=== PATIENT | male | born 1960 | race Caucasian/White ===

== ENCOUNTER 2020-12-24 10:48 | Inpatient (IN) | payer OTHER ==
[~2020-12-24] VITALS: Ht 175.3 cm; Wt 86.2 kg
[2020-12-24 14:02] LABS: HEMATOCRIT 28.5 % (42.0-52.0); HEMOGLOBIN 9.4 gm/dL (14.0-18.0); MCH 34.1 pg (26.0-34.0); MCHC 32.8 g/dL (28.0-37.0); MCV 103.8 fL (80.0-100.0); RBC 2.75 mil/uL (4.50-6.00); RDW 18.8 % (10.5-14.5); WBC 9.1 thou/uL (4.0-11.0)
[2020-12-24 14:14] LABS: INR 2.9; PROTIME 30.3 Seconds (9.3-11.4)
[2020-12-24 14:18] LABS: CALCIUM 8.8 mg/dL (8.5-10.1); CREATININE 1.2 mg/dL (0.7-1.3); POTASSIUM 3.8 mmol/L (3.5-5.1)
[2020-12-24 14:24] LABS: ALBUMIN 2.6 g/dL (3.4-5.0); MAGNESIUM 1.5 mg/dL (1.8-2.4); PHOSPHORUS 3.2 mg/dL (2.5-4.9); TOTAL BILIRUBIN 2.2 mg/dL (0.2-1.0); TOTAL PROTEIN 5.7 g/dL (6.4-8.2)
[2020-12-24 15:18] LABS: FOLIC ACID 12.9 ng/mL (8.6-58.9)
[2020-12-24] MEDS ORDERED: ELIQUIS5 MG PO (16:09)
[2020-12-24] MEDS ORDERED: NADOLOL 40 MG T40 M1 PO (16:13)
[2020-12-24] MEDS ORDERED: NEURONTIN100 MG PO (16:15)
[2020-12-24] MEDS ORDERED: PROTONIX40 M2 PO (16:16)
[2020-12-24 16:45] VITALS: BP 135/91
--- NOTE | 2020-12-24 17:04 | NUR ---
PATIENT ADMIT TO UNIT AT 1330 FROM [facility]. A/O X2 CONFUSED AND IMPULSIVE. IR INSERT IVC FLITER VIS RIGHT JUGULAR. NO EDEMA AND BLEEDING NOTED AT THIS TIME. PATIENT DENIES PAIN. ON 2L/NC. RESTLESS ON BED. ARLAM ON. WILL KEEP MONITOR.
[2020-12-24 20:09] VITALS: BP 131/84
[2020-12-24 23:55] VITALS: BP 130/82
--- NOTE | 2020-12-25 00:26 | NUR ---
SPOKE WITH DR. SONIDO CHEN, COVID PCR RESULT "NEGATIVE." REPORTED PT RESULTS OF CT SCAN AND CXR FROM 12/23 AT [facility] ER. NO "OPACITIES" PER REPORTS. ABLE TO DC ISOLATION FROM COVID PER DR. CHEN. NOTED HX OF COPD, DAILY MARIJUNNA, CIGARETTE AND ETOH CONSUMPTION. UPON INTIAL ASSESSMENT PT ON ROOM AIR WITH O2 SAT 95%. PT DROWSY, ORIENTED TO NAME, "[place]" BUT NOT TO TIME OR SITUATION. BRIEFLY SPOKE TO PT ABOUT DX OF PULMONARY EMBOLISM. PT REPORTS PARTIALLY RECALLS GOING TO IR FOR STERLING FILTER PLACEMENT. BRIEFLY INFORMED PT ON NECESSITY/PURPOSE FOR AND BEING COMPLIANT WITH TAKING APIXIBAN. PT REPORTED "I'M JUST TIRED." O2 SAT ON ROOM AT THAT TIME 95%. AT THIS TIME, PT STILL DROWSY BUT AWAKENS. SLIGHT CONGESTED COUGH. PT REPORTED "I ALWAYS GET A LITTLE SHORT OF BREATH UNTIL I COUGH THIS JUNK OUT." O2 SAT 83-84% ON ROOM AIR, 90% WITH O2 AT 4L PER NC. WILL MONITOR. LUNGS DIMINISHED THROUGHOUT.
[2020-12-25 04:45] VITALS: BP 130/98
[2020-12-25 06:06] LABS: IgG 912 mg/dL (603-1613)
--- NOTE | 2020-12-25 06:26 | NUR ---
PT MAKING SLOW PROGRESS TOWARDS GOALS. NOTED SLIGHT AMOUNT OF OOZING FROM RIGHT IJ PUNCTURE SITE. BY END OF SHIFT BANDAGE FULLY SATURATED. NEW DRESSING APPLIED. SIGHT CONTINUED TO SLOWLY OOZE DESPITE FIVE MINUTES OF PRESSURE. PT A&O X4 THIS AM. SEE CHARTING.
[2020-12-25 07:34] VITALS: BP 146/102
[2020-12-25 08:07] LABS: HAV IgM AB (ANTI-HAV IgM) Negative (Negative); HEPATITIS B SURFACE AG Negative (Negative); HEPATITIS C VIRUS AB >11.0 (0.0-0.9)
[2020-12-25 15:09] VITALS: BP 158/113
[2020-12-25 16:07] VITALS: BP 145/108
--- NOTE | 2020-12-25 16:12 | NUR ---
PT. ARRIVED AT THE FLOOR AROUND 1600; PT. ALERT; EDUCATED ABOUT FALL PRECAUTIONS; ST. UNDERSTANDING; NO C/O PAIN; ST. NOT REMEMBERING LAST BM; ST. NOT EATING MUCH; NOT FEELING CONSTIPATED; HR NOT MONITORING; SBP ABOVE 100; MONITORING; ASSESSMENT CHARGED; FOLLOWING POC; WILL PASS ON REPORT;
[2020-12-25 21:06] VITALS: BP 141/83
[2020-12-26 05:47] VITALS: BP 145/97
[2020-12-26 07:37] VITALS: BP 148/99
[2020-12-26 08:33] LABS: INR 1.3; PROTIME 13.1 Seconds (9.3-11.4)
[2020-12-26 11:01] LABS: HEMATOCRIT 24.6 % (42.0-52.0); MCH 34.7 pg (26.0-34.0); MCHC 32.4 g/dL (28.0-37.0); RBC 2.3 mil/uL (4.50-6.00); RDW 18.9 % (10.5-14.5)
[2020-12-26 11:14] LABS: ALBUMIN 2.4 g/dL (3.4-5.0); CALCIUM 8.1 mg/dL (8.5-10.1); CREATININE 0.9 mg/dL (0.7-1.3); POTASSIUM 3.2 mmol/L (3.5-5.1); TOTAL BILIRUBIN 1.1 mg/dL (0.2-1.0); TOTAL PROTEIN 5.2 g/dL (6.4-8.2)
[2020-12-26 11:23] VITALS: BP 133/78
[2020-12-26 15:15] VITALS: BP 130/76
--- NOTE | 2020-12-26 18:00 | NUR ---
RECEIVED PT'S CARE AROUND 0738; PT. ON BED; ALERT; DURING AM ASSESSMENT AXO4; C/O KNEE PAIN; PRN PAIN MEDICATION GIVEN WITH AM MEDICATIONS; REMAINED ABOUT FALL PRECAUTIONS; ST. UNDERSTANDING; NOTICED LOW POTASSIUM; PHYSICIAN NOTIFIED; ORDERS ON PLACED; POTASSIUM REPLACED; SPOUSE AT THE BED SIDE AT NOON; UPDATED ABOUT POC AND PT'S HEALTH; REQUESTED TO TALK WITH INTERNATIONAL ACCOUNT MANAGER IN ORDER TO START DISABILITY PROCESS; INTERNATIONAL ACCOUNT MANAGER CONSULT ORDERED; NOTICED HAVING A HARD TIME SWALLOWING PILLS; ST. AT HOME HAS THE SAME PROBLEM; PHYSICIAN NOTIFIED; ST CONSULTED; REQUESTED TO TAKE A SHOWER AFTER THE GAME; ASSESSMENT CHARGED; FOLLOWING POC; WILL PASS ON REPORT;
[2020-12-27 03:29] LABS: HEMATOCRIT 24.8 % (42.0-52.0); HEMOGLOBIN 8.2 gm/dL (14.0-18.0); MCH 35.1 pg (26.0-34.0); MCHC 33.1 g/dL (28.0-37.0); MCV 105.8 fL (80.0-100.0); RBC 2.34 mil/uL (4.50-6.00); RDW 19.5 % (10.5-14.5); WBC 6.4 thou/uL (4.0-11.0)
[2020-12-27 03:41] LABS: CALCIUM 7.8 mg/dL (8.5-10.1); CREATININE 0.9 mg/dL (0.7-1.3); POTASSIUM 3.6 mmol/L (3.5-5.1)
--- NOTE | 2020-12-27 05:07 | NUR ---
ASSUMED PT CARE AT 1900. VSS. PT A&0X4. COMPLAINTS OF PAIN IN KNEES. GABAPENTIN GIVEN. LEFT IV SITE DRESSING CHANGE. PT RESTED WELL ALL NOC. NO ISSUES. WILL CONTINUE TO MONITOR
--- NOTE | 2020-12-27 05:14 | NUR ---
PT WANTS HIS MEDICAL RECORDS FROM [facility], FAXED TO DR MCKENNA IN [facility]- [phone]. OR IT COULD BE FAXED TO [facility] [phone] WHEN HE GETS D/C
[2020-12-27 05:36] VITALS: BP 139/92
[2020-12-27 09:06] LABS: ANA INTERPRETATION Negative (Negative); CERULOPLASMIN 15.5 mg/dL (16.0-31.0)
[2020-12-27] MEDS ORDERED: XARELTO15 MG PO (11:57)
[2020-12-27] MEDS ORDERED: XARELTO20 MG PO (11:58)
[2020-12-27] MEDS ORDERED: VITAMIN B-1100 M2 PO (11:59)
[2020-12-27 12:11] VITALS: BP 139/92
--- NOTE | 2020-12-27 16:59 | NUR ---
Pt dc'd home this morning prior to being seen by cm. Pt had ride home and ins in place for f/u care.
--- NOTE | 2020-12-27 17:33 | NUR ---
12/27/20 PATIENT DISCHARGED HOME WITH . PATIENT AND EDUCATED ON NEW MEDICATIONS AND WHEN TO FOLLOW UP WITH PCP. PRESCRIPTIONS SENT WITH PATIENT. PATIENT ESCORTED TO CAR AND LOADED IN.
[2020-12-28 13:09] LABS: MITOCHONDRIAL ANTIBODY <20.0 Units (0.0-20.0); SMOOTH MUSCLE ANTIBODY 8 Units (0-19)
--- NOTE | 2020-12-29 15:37 | NUR ---
Call back rec'd from pt's sign other Melvi. She was requesting information about HBCS program through medicaid. Information and 1-800 number provided. She also asked if the pt's dc summary could be faxed to his pcp Dr. Rhoades in [place]. She indicates that at times he can be confused or not understand what the physicians are recommending. [facility] did [facility]. He has filed a SS disability application and has a f/u appt with an estate attorney. Melvi notes they are going to try to get a DPOA for hc in place for the future as they are not and she takes care of him. Information provided. DC summary faxed to Dr. Rhoades's office to facilitate f/u care.
== END 2020-12-27 13:19 | disposition home or self-care (01) | DRG 175 ==
LOC: 3W 10:48 → 2N 12:54
PROVIDERS: Hospitalist; Nurse Practitioner; ADMIT Hospitalist; ATTEND Hospitalist
DX: I26.92 Saddle embolus of pulmonary artery without acute cor pulmonale (principal); E43 Unspecified severe protein-calorie malnutrition; I82.409 Acute embolism and thrombosis of unspecified deep veins of unspecified lower extremity; D68.8 Other specified coagulation defects; K76.6 Portal hypertension; K92.1 Melena; E46 Unspecified protein-calorie malnutrition; K70.30 Alcoholic cirrhosis of liver without ascites; K70.11 Alcoholic hepatitis with ascites; B19.20 Unspecified viral hepatitis C without hepatic coma; Z20.822 Contact with and (suspected) exposure to COVID-19
CPT/HCPCS: 10081; 10779; 10797